=== PATIENT | female | born 1975 | race Hispanic/Latino ===

== ENCOUNTER 2024-09-18 05:55 | Day surgery (SDC) | payer BC ==
[2024-09-17 15:34] VITALS: BP 172/71; PULSE 87; RESP 18; TEMP 97.7
[2024-09-17 15:44] LABS: BASOPHILS # (AUTO) 0.02 K/uL (0.00-0.20); BASOPHILS % (AUTO) 0.3 % (0.0-5.0); EOSINOPHILS # (AUTO) 0.07 K/uL (0.00-0.70); EOSINOPHILS % (AUTO) 1.1 % (0.0-8.0); HEMATOCRIT 40.5 % (36-48); IMMATURE GRANULOCYTE ABSOLUTE 0.03 K/uL (0-1); LYMPHOCYTES # (AUTO) 2.2 K/uL (1.0-4.8); LYMPHOCYTES % (AUTO) 35.7 % (21.0-51.0); MEAN CORPUSCULAR HEMOGLOBIN 31.5 pg (27.0-33.0); MEAN CORPUSCULAR HGB CONC 33.1 g/dL (32.0-36.0); MEAN CORPUSCULAR VOLUME 95.1 fL (79-99); MONOCYTES # (AUTO) 0.3 K/uL (0.1-1.0); MONOCYTES % (AUTO) 5.2 % (3.0-13.0); NEUTROPHILS # (AUTO) 3.5 K/uL (1.8-7.7); NEUTROPHILS % (AUTO) 57.2 % (40.0-77.0); PLATELET COUNT (AUTO) 186 K/uL (130-400); RED BLOOD CELL COUNT(AUTO) 4.26 MIL/uL (4.00-5.50); RED CELL DISTRIBUTION WIDTH 12.1 % (11.0-15.5); WHITE BLOOD COUNT (AUTO) 6.2 K/uL (4.8-10.8)
[2024-09-17 15:53] LABS: INR 0.95 (0.85-1.15); PROTHROMBIN TIME 10.1 SEC (9.6-11.6)
[2024-09-17 15:54] LABS: PARTIAL THROMBOPLASTIN TIME 25.8 SEC (26.3-35.5)
[2024-09-17 16:22] LABS: CREATININE 0.6 mg/dL (0.5-1.0); POTASSIUM 4.1 mmol/L (3.5-5.1)
--- NOTE | 2024-09-17 20:21 | EKG ---
[facility] Test Date: 2024-09-17 Test Time: 15:04:29 Pat Name: LES URIBE Department: [facility] Room: [facility] Gender: F Ward Supervisor: [id number] : 1975 Requested By: NICOLA MCDANIEL Order Number: [id number] Reading MD: Nicola Nick Measurements Intervals [place] Rate: 64 P: 17 IA: 142 QRS: 38 QRSD: 82 T: 13 QT: 410 QTc: 422 Interpretive Statements Sinus rhythm No previous ECG available for comparison Electronically Signed On 09-18-2024 20:42:10 CDT by Nicola Nick Please click the below link to view image of tracing.
[2024-09-18] VITALS (18 sets, daily range): BP systolic 125–145; BP diastolic 63–77; PULSE 57–74; RESP 13–19; TEMP 97.2–97.7
[~2024-09-18] VITALS: Ht 157.5 cm; Wt 102.1 kg
[2024-09-18] MEDS: metRONIDazole 500MG/100ML BAG 200 ML ONE (06:39)
[2024-09-18] MEDS: ceFAZolin SODIUM 2 GM VIAL ONE (06:39)
[2024-09-18] MEDS: INDOCYANINE GREEN 25 MG VIAL IJ ONE (06:48)
[2024-09-18] MEDS ORDERED: proPOFol 10 MG/ML 20ML VIAL IV ONE (06:53)
[2024-09-18] MEDS ORDERED: MIDAZOLAM HCL 1 MG/ML 2ML VIAL ONE (06:53)
[2024-09-18] MEDS ORDERED: LIDOCAINE PF 100MG/5ML (2%) SYRINGE 5ML ONE (06:53)
[2024-09-18] MEDS ORDERED: FENTanyl CITRate PF 50 MCG/1 ML 2ML VIAL ONE ×2 (06:54→08:52)
[2024-09-18] MEDS ORDERED: rocuRONium bROMide 10MG/1ML 5ML VL ONE (06:56)
[2024-09-18] MEDS ORDERED: ondanSETRON 4MG INJ ONE (06:56)
[2024-09-18] MEDS ORDERED: phenylEPHRINE HCL 10 MG/ML 1ML VIAL IV ONE (06:57)
[2024-09-18] MEDS ORDERED: 0.9%NACL 10ML VIAL ONE (06:57)
[2024-09-18] MEDS: LACTATED RINGERS 1000ML 1,000 ML IV ONE (07:36)
[2024-09-18] MEDS: ceFAZolin SODIUM 2 GM VIAL IVPB ONE (08:18)
[2024-09-18] MEDS ORDERED: dexaMETHasone SOD PHOSPHATE 4 MG/ML 1ML VIAL ONE (08:26)
[2024-09-18] MEDS: BUPIvacaine/PF 0.25% 30ML VIAL IJ ONE (08:53)
[2024-09-18] MEDS ORDERED: dexmedeTOMIDine HCL 200 MCG/2 ML VIAL IV ONE (08:59)
[2024-09-18] MEDS ORDERED: GLYCOPYRROLATE 0.2 MG/ML 5 ML VIAL ONE (09:10)
[2024-09-18] MEDS ORDERED: NEOSTIGMINE METHYLSULFATE 1MG/ML IV ONE (09:10)
--- NOTE | 2024-09-18 09:39 | OP ---
Operative Note: DATE OF PROCEDURE: 09/18/24 SURGEON: NICOLA MCDANIEL MD BONE CHAR KILN OPERATOR: Ignacio Mcdaniel MD PA-C ANESTHESIA: General and Local ANESTHESIOLOGIST/NUCLEAR MEDICINE TECHNICIAN: [facility] [place] PREOPERATIVE DIAGNOSIS: Symptomatic cholelithiasis and nondescript dyspepsia and heartburn concerning for peptic ulcer disease POSTOPERATIVE DIAGNOSIS: As above. Gastritis noted on EGD. SYNOPSIS: Cholecystectomy with intraoperative cholangiogram and EGD with cold forceps biopsy performed without complication PROCEDURE: 1. Robotic assisted cholecystectomy with IC green cholangiogram 2. EGD with biopsy ESTIMATED BLOOD LOSS: Minimal, less than 20 cc INDICATIONS: As above DESCRIPTION OF PROCEDURE: After standard precautions and preparations were undertaken a Veress needle and optical trocar were used to enter the abdominal cavity. All other instruments were placed under direct vision. The robotic system was docked in the standard fashion. We began our dissection by retracting the gallbladder fundus cephalad and working in the area of the infundibulum to achieve a critical view of safety. Once we could identify a single cystic duct and a single cystic artery we switched to our firefly view so that we could image of the ductal system. This confirmed that the duct was in fact the cystic duct. We can see it down to its junction with the common hepatic and common bile duct and we could visualize bile within the duodenum as well. A clip applications coordinator was used to clip both structures. Both structures were divided. Monopolar cautery was used to remove the attachments to the gallbladder fossa. The clips were rechecked and found to be in place. The gallbladder was placed in an Endo-Catch bag and removed from the abdominal cavity. We then turned our attention to the endoscopy. The EGD scope was passed down through the esophagus through the stomach and into the 1st and 2nd portions of the duodenum. Pictures were taken of all coronado structures. Cold forceps biopsies were taken in the duodenal bulb, gastric antrum, gastric body, and distal esophagus. The only significant findings were irregular Z-line at 38 cm from the incisors, mild scattered gastritis as evidenced by erythema, edema, and mucus within the stomach. It was scattered in areas of the pre-pyloric antrum and gastric body. There was no evidence of a significant hiatal hernia. After pictures were taken biopsies collected the scope was removed without incident. Blood loss was minimal from the biopsies. Prior to officially ending the case all instrument counts were verified as correct including needles and sponges. NICOLA MCDANIEL MD Sep 18, 2024 09:39
--- NOTE | 2024-09-18 09:48 | PN ---
GENERAL SURGERY PROGRESS NOTE Date/Time Patient Seen: [09/18/2024 at 9:45 a.m. ] Problem List: [ ] Interval History: [ Postop day 0. Pain tolerable with p.r.n. medication.] Physical Examination: ABD: [Incisions clean, dry and intact, Dermabond in place Vital Signs (last 8hr) Date Time Temp Pulse Resp B/P (MAP) Pulse Ox O2 Delivery O2 Flow Rate FiO2 09/18/24 07:00 97.3 60 18 125/71 100 Room Air 21 Laboratory: [ ] Hematology Labs: Test 09/17/24 15:00 Range/Units White Blood Count 6.2 4.8-10.8 K/uL Red Blood Count 4.26 4.00-5.50 MIL/uL Hemoglobin 13.4 12.0-16.0 g/dL Hematocrit 40.5 36-48 % Mean Corpuscular Volume 95.1 79-99 fL Mean Corpuscular Hemoglobin 31.5 27.0-33.0 pg Mean Corpuscular Hemoglobin Concent 33.1 32.0-36.0 g/dL Red Cell Distribution Width 12.1 11.0-15.5 % Platelet Count 186 130-400 K/uL Mean Platelet Volume 12.4 H 7.5-10.5 fL Immature Granulocyte % (Auto) 0.5 0-1 % Neutrophils (%) (Auto) 57.2 40.0-77.0 % Lymphocytes (%) (Auto) 35.7 21.0-51.0 % Monocytes (%) (Auto) 5.2 3.0-13.0 % Eosinophils (%) (Auto) 1.1 0.0-8.0 % Basophils (%) (Auto) 0.3 0.0-5.0 % Neutrophils # (Auto) 3.5 1.8-7.7 K/uL Lymphocytes # (Auto) 2.2 1.0-4.8 K/uL Monocytes # (Auto) 0.3 0.1-1.0 K/uL Eosinophils # (Auto) 0.07 0.00-0.70 K/uL Basophils # (Auto) 0.02 0.00-0.20 K/uL Absolute Immature Granulocyte (auto 0.03 0-1 K/uL Nucleated Red Blood Cells 0.0 0.0-0.19 % Chemistry Labs: Test 09/17/24 15:00 Range/Units Sodium Level 137 136-145 mmol/L Potassium Level 4.1 3.5-5.1 mmol/L Chloride Level 101 101-111 mmol/L Carbon Dioxide Level 31 21-32 mmol/L Blood Urea Nitrogen 12 7-18 mg/dL Creatinine 0.6 0.5-1.0 mg/dL Glomerular Filtration Rate Calc 112 >90 mL/min Random Glucose 93 70-105 mg/dL Total Calcium 8.7 8.5-10.1 mg/dL Coagulation Labs: Test 09/17/24 15:00 Range/Units Prothrombin Time 10.1 9.6-11.6 SEC Prothromb Time International Ratio 0.95 0.85-1.15 Activated Partial Thromboplast Time 25.8 L 26.3-35.5 SEC Diagnostics / Radiology: [Copy/Paste Echos/Imaging Report here] Impression and Plan: [Plan is for discharge home today as long as patient tolerating p.o., ambulatory and pain under control. Discussed with patient and family. They understand and agree. ] MATIAS MCDANIEL Sep 18, 2024 09:48
[2024-09-18] MEDS: hydroMORPHone 1 MG INJ ONE (10:23)
[2024-09-18] MEDS: ketOROlac 30MG VIAL (30MG/ML) ONE (10:33)
== END 2024-09-18 11:25 | disposition home or self-care (01) ==
LOC: DAH 05:55
PROVIDERS: ATTEND Surgery
DX: K80.12 Calculus of gallbladder with acute and chronic cholecystitis without obstruction (principal); K29.70 Gastritis, unspecified, without bleeding; R12 Heartburn; K21.9 Gastro-esophageal reflux disease without esophagitis; E66.01 Morbid (severe) obesity due to excess calories; Z68.41 Body mass index [BMI] 40.0-44.9, adult; Z79.899 Other long term (current) drug therapy; Z98.890 Other specified postprocedural states; Z90.710 Acquired absence of both cervix and uterus; Z98.891 History of uterine scar from previous surgery
CPT/HCPCS: 43239; 47563; S2900; 36415; 80048; 85025; 85610; 85730; 86850; 86900; 86901; 88304; 93005; J1100; J1171; J1885; J2003; J2250; J2371; J2405; J2704; J2710; J3010; J3490; J7030; J7120; A4213; A4215; A4216; A4221; A4222; A4223; A4600; A4663; A4930; A6260; J0665; J0690